=== PATIENT | female | born 1975 | race Caucasian/White ===

== ENCOUNTER → 2020-10-25 14:44 | Outpatient (CLI) | payer OTHER, SELFPAY ==
--- NOTE | 2020-10-25 | DI.MG.S_ITS ---
BILATERAL DIGITAL SCREENING MAMMOGRAM 3D/2D WITH CAD: 10/25/2020 CLINICAL: Routine screening. Family history of breast cancer. No prior exams were available for comparison. The tissue of both breasts is heterogeneously dense. This may lower the sensitivity of mammography. Current study was also evaluated with a Computer Aided Detection (CAD) system. There are grouped fine calcifications in the right breast at 10 o'clock posterior depth. There is an oval focal asymmetry with an obscured margin in the left breast at 1 o'clock middle depth. There also is an oval focal asymmetry with an obscured margin in the left breast at 1 o'clock posterior depth. No other significant masses or calcifications are seen in either breast. IMPRESSION: INCOMPLETE: NEEDS ADDITIONAL IMAGING EVALUATION The grouped fine calcifications in the right breast at 10 o'clock posterior depth are indeterminate. -Additional views are recommended. The oval focal asymmetry in the left breast at 1 o'clock middle depth resembles a cyst and is indeterminate. -Additional views with possible ultrasound are recommended. The oval focal asymmetry in the left breast at 1 o'clock posterior depth resembles a cyst and is indeterminate. -Additional views with possible ultrasound are recommended. This exam was interpreted at Station ID: [id number]. NOTE: For mammograms, a report in lay terms will be sent to the patient. Approximately 15% of breast malignancies will not be visualized mammographically. In the management of a palpable breast mass, a negative mammogram must not discourage biopsy of a clinically suspicious lesion. Electronically Signed By: Rogers Coelho M.D. [facility] [place]10/25/2020 16:12:35 letter sent: Additional Imaging Needed ACR BI-RADS Category 0: Incomplete [id number]
== END ==
PROVIDERS: PCP Nurse Practitioner Family; Referring Provider Nurse Practitioner Family; Visit Provider Nurse Practitioner Family
DX: Z12.31 Encounter for screening mammogram for malignant neoplasm of breast (principal); Z80.3 Family history of malignant neoplasm of breast
CPT/HCPCS: 77063; 77067